=== PATIENT | male | born 1990 | race African-American/Black ===

== ENCOUNTER 2016-08-31 13:18 | Emergency (ER) | payer SELFPAY ==
[~2016-08-31] VITALS: Ht 170.2 cm; Wt 64.4 kg
[2016-08-31 13:41] VITALS: BP 121/82
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
[2016-08-31 14:28] LABS: BILIRUBIN,URINE NEGATIVE (NEG); GLUCOSE,URINE NEGATIVE (NEG); NITRITE,URINE NEGATIVE (NEG); PH,URINE 6.5; PROTEIN,URINE NEGATIVE (NEG-TRACE); UROBILINOGEN,URINE 0.2 mg/dL (0.2 mg/dL)
[2016-08-31 14:45] LABS: BACTERIA,URINE FEW /HPF (0-FEW); SQUAMOUS EPITHELIAL CELL,UR MOD /LPF; WBC,URINE >40 /HPF (0-4)
[2016-08-31] MEDS ORDERED: CYCLOBENZAPRINE 10 MG TABLET. PO ONE (14:45)
[2016-08-31] MEDS ORDERED: CYCL10TA2 PO (14:53)
[2016-08-31] MEDS ORDERED: CIPR500T94 PO (14:53)
== END 2016-08-31 15:03 | disposition home or self-care (01) ==
LOC: ER 13:18
DX: N39.0 Urinary tract infection, site not specified (principal); M54.5 Low back pain; F12.10 Cannabis abuse, uncomplicated; Z88.5 Allergy status to narcotic agent; V49.59XA Passenger injured in collision with other motor vehicles in traffic accident, initial encounter; Y93.89 Activity, other specified; Y92.89 Other specified places as the place of occurrence of the external cause; Y99.8 Other external cause status
CPT/HCPCS: 81001; 87086; 99284-25